=== PATIENT | female | born 1960 ===

== ENCOUNTER → 2017-07-14 | Outpatient (CLI) | payer OTHER | END | disposition home or self-care (01) | LOC: PPHC 13:57 | DX: J06.9 Acute upper respiratory infection, unspecified (principal) ==

== ENCOUNTER 2017-07-15 10:53 | Outpatient (CLI) | payer OTHER | END 2017-07-15 15:46 | disposition home or self-care (01) | LOC: RAD 10:53 | DX: R05 Cough (principal); R09.81 Nasal congestion ==

== ENCOUNTER 2017-07-15 12:41 | Outpatient (CLI) | payer OTHER | END 2017-07-15 12:58 | disposition home or self-care (01) | LOC: LAB 12:41 | DX: R50.9 Fever, unspecified (principal) ==

== ENCOUNTER → 2017-07-15 | Outpatient (CLI) | payer OTHER | END | disposition home or self-care (01) | LOC: PPHC 14:34 | DX: J06.9 Acute upper respiratory infection, unspecified (principal); Z01.89 Encounter for other specified special examinations ==